=== PATIENT | female | born 1970 | race Caucasian/White ===

== ENCOUNTER → 2019-04-13 | Outpatient (CLI) | payer BC | LOC: LAB 18:44 → LAB SHORT 18:44 | DX: L08.9 Local infection of the skin and subcutaneous tissue, unspecified (principal); L30.9 Dermatitis, unspecified; E78.2 Mixed hyperlipidemia; L81.8 Other specified disorders of pigmentation; L81.4 Other melanin hyperpigmentation; D22.5 Melanocytic nevi of trunk; D48.5 Neoplasm of uncertain behavior of skin | CPT/HCPCS: 87070; 87077; 87147; 87186; 87205 ==